=== PATIENT | male | born 1950 | race Caucasian/White ===

== ENCOUNTER 2016-12-11 09:12 | Emergency (ER) | payer OTHER ==
[~2016-12-11] VITALS: Ht 188 cm; Wt 88.5 kg
[~2016-12-11 09:12] MED LIST: CEPH500C3 PO; OXYC-360 PO; Z.0.NO CURRENT MEDS
[2016-12-11 09:15] VITALS: BP 156/77; PULSE 58; RESP 24; O2SAT 98
[2016-12-11] MEDS ORDERED: SODIUM CHLOR 0.9% 1000 ML INJ 1,000 ML IV ONE (09:32)
[2016-12-11 09:35] VITALS: BP 152/75; PULSE 50; RESP 16; O2SAT 100
--- NOTE | 2016-12-11 09:38 | PD ---
HPI Chief Complaint: GI Complaint Time Seen by Provider: 09:23 Travel History International Travel<30 days: No Contact w/Intl Traveler<30days: No Traveled to known affect area: No History of Present Illness HPI The patient is a 66-year-old male who presents emergency department for nausea, vomiting, and vertigo. The patient states he awakened this morning to look at the alarm clock and had a sudden onset of dizziness. The patient describes the dizziness as the room spinning and feeling off balance. The symptoms are worse when he turns his head left, right, has any sudden movements and slightly alleviated at rest. The patient also notes nausea and vomiting secondary to vertigo, but denies any chest pain, shortness of breath, or focal deficits. The patient does have a history of vertigo approximately 10 years ago that lasted for 2 days, the patient was placed on medications to help him sleep, the vertigo self resolved. He denies any weakness, numbness, tingling of the upper or lower extremities. The patient does have a history of prostate cancer and has a "button" in the scrotum that works as a sphincter, when he pushes the button, he is able to urinate. PFSH Past Medical History Narrative Medical Prostate cancer Diabetes: No Hepatitis: No Hiatal Hernia: No Thyroid Disease: No Past Surgical History Abdominal Surgery: Yes (hernia branden repair) Genitourinary Surgery: Yes (davinci prostatectomy) Social History Tobacco Use: No Allergies-Medications (Allergen,Severity, Reaction): Coded Allergies: No Known Allergies (Unverified , 12/11/16) Reported Meds & Prescriptions Reported Meds & Active Scripts Active Zofran Odt (Ondansetron Odt) 4 Mg Tab 4 Mg SL Q6HR PRN Valium (Diazepam) 5 Mg Tab 5 Mg PO TID PRN Meclizine (Meclizine HCl) 25 Mg Tab 25 Mg PO TID PRN Review of Systems Except as stated in HPI: all other systems reviewed are Neg HENT: Positive: Vertigo Cardiovascular: No: Chest Pain or Discomfort Gastrointestinal: Positive: Nausea, Vomiting, No: Abdominal Pain Musculoskeletal: No: Weakness Neurologic: Positive: Dizziness, No: Weakness, Focal Abnormalities, Headache Physical Exam Narrative GENERAL: Awake, alert, 66-year-old male who appears his stated age and is in no acute respiratory distress. SKIN: Slightly diaphoretic. HEAD: Atraumatic. Normocephalic. EYES: Pupils equal and round. Pupils are 3 mm bilateral and reactive. EOMs are intact. Patient is able to see fingers at a distance of 2 feet without difficulty. Patient is apprehensive when head is turned to the left or right. ENT: No nasal bleeding or discharge. Mucous membranes pink and moist. NECK: Trachea midline. No JVD. CARDIOVASCULAR: Regular, bradycardic with a heart rate of 56. RESPIRATORY: No accessory muscle use. Clear to auscultation. Breath sounds equal bilaterally. GASTROINTESTINAL: Abdomen soft, non-tender, nondistended. No rebound tenderness. MUSCULOSKELETAL: No obvious deformities. No clubbing. No cyanosis. No edema. NEUROLOGICAL: Awake and alert. No obvious cranial nerve deficits. Motor grossly within normal limits. Normal speech. PSYCHIATRIC: Appropriate mood and affect; insight and judgment normal. Data Data Last Documented VS Vital Signs Date Time Temp Pulse Resp B/P Pulse Ox O2 Delivery O2 Flow Rate FiO2 12/11/16 09:35 50 16 152/75 100 Room Air Orders Electrocardiogram (12/11/16 09:32) Basic Metabolic Panel (Bmp) (12/11/16 09:32) Complete Blood Count With Diff (12/11/16 09:32) Ct Brain W/O Iv Contrast(Rout) (12/11/16 09:32) Ecg Monitoring (12/11/16 09:32) Iv Access Insert/Monitor (12/11/16 09:32) Oximetry (12/11/16 09:32) Meclizine (Antivert) (12/11/16 09:45) Ondansetron Inj (Zofran Inj) (12/11/16 09:45) Sodium Chloride 0.9% Flush (Ns Flush) (12/11/16 09:45) Sodium Chlor 0.9% 1000 Ml Inj (Ns 1000 M (12/11/16 09:32) Orthostatic Vital Signs (12/11/16 09:32) Diazepam (Valium) (12/11/16 09:45) Ondansetron Inj (Zofran Inj) (12/11/16 11:00) Meclizine (Antivert) (12/11/16 11:00) Labs Laboratory Tests Test 12/11/16 12/11/16 09:50 11:20 White Blood Count 7.7 TH/MM3 Red Blood Count 4.99 MIL/MM3 Hemoglobin 15.5 GM/DL Hematocrit 45.6 % Mean Corpuscular Volume 91.3 FL Mean Corpuscular Hemoglobin 31.0 PG Mean Corpuscular Hemoglobin 34.0 % Concent Red Cell Distribution Width 13.7 % Platelet Count 142 TH/MM3 Mean Platelet Volume 9.9 FL Neutrophils (%) (Auto) 77.1 % Lymphocytes (%) (Auto) 14.2 % Monocytes (%) (Auto) 6.5 % Eosinophils (%) (Auto) 1.8 % Basophils (%) (Auto) 0.4 % Neutrophils # (Auto) 6.0 TH/MM3 Lymphocytes # (Auto) 1.1 TH/MM3 Monocytes # (Auto) 0.5 TH/MM3 Eosinophils # (Auto) 0.1 TH/MM3 Basophils # (Auto) 0.0 TH/MM3 CBC Comment DIFF FINAL Differential Comment Sodium Level 143 MEQ/L Potassium Level 3.5 MEQ/L Chloride Level 110 MEQ/L Carbon Dioxide Level 23.5 MEQ/L Anion Gap 10 MEQ/L Blood Urea Nitrogen 11 MG/DL Creatinine 0.93 MG/DL Estimat Glomerular Filtration 81 ML/MIN Rate Random Glucose 101 MG/DL Calcium Level 8.3 MG/DL MDM Medical Decision Making Medical Screen Exam Complete: Yes Emergency Medical Condition: Yes Medical Record Reviewed: Yes Interpretation(s) EKG reveals sinus bradycardia with a heart rate of 49. RSR prime in V1 with QRS of 114 ms, incomplete right bundle branch block. Last Impressions Head CT 12/11/16 0932 Signed Impressions: Service Date/Time: Sunday, December 11, 2016 10:02 - CONCLUSION: No acute disease. Feliz Nino MD FACR Laboratory Tests Test 12/11/16 12/11/16 09:50 11:20 White Blood Count 7.7 TH/MM3 Red Blood Count 4.99 MIL/MM3 Hemoglobin 15.5 GM/DL Hematocrit 45.6 % Mean Corpuscular Volume 91.3 FL Mean Corpuscular Hemoglobin 31.0 PG Mean Corpuscular Hemoglobin 34.0 % Concent Red Cell Distribution Width 13.7 % Platelet Count 142 TH/MM3 Mean Platelet Volume 9.9 FL Neutrophils (%) (Auto) 77.1 % Lymphocytes (%) (Auto) 14.2 % Monocytes (%) (Auto) 6.5 % Eosinophils (%) (Auto) 1.8 % Basophils (%) (Auto) 0.4 % Neutrophils # (Auto) 6.0 TH/MM3 Lymphocytes # (Auto) 1.1 TH/MM3 Monocytes # (Auto) 0.5 TH/MM3 Eosinophils # (Auto) 0.1 TH/MM3 Basophils # (Auto) 0.0 TH/MM3 CBC Comment DIFF FINAL Differential Comment Sodium Level 143 MEQ/L Potassium Level 3.5 MEQ/L Chloride Level 110 MEQ/L Carbon Dioxide Level 23.5 MEQ/L Anion Gap 10 MEQ/L Blood Urea Nitrogen 11 MG/DL Creatinine 0.93 MG/DL Estimat Glomerular Filtration 81 ML/MIN Rate Random Glucose 101 MG/DL Calcium Level 8.3 MG/DL Differential Diagnosis Differential diagnosis includes vertigo, labyrinthitis, Mnire's disease, cerebellar infarct, intracranial hemorrhage, arrhythmia, vasovagal episode. Narrative Course IV was established, labs are drawn and sent, and the patient was placed on cardiac telemetry monitoring and continuous pulse oximetry monitoring. The patient was administered meclizine, Valium, Zofran, and IV fluids. CT of the brain was obtained. EKG was ordered and interpreted. EKG reveals sinus bradycardia, heart rate did dip into the high 40s and would go up to the 60s, sinus rhythm, no evidence of underlying second-degree or third-degree block. CT of the brain is negative. The patient is reevaluated several times, the dizziness remained, however, had improved. The patient states he had a history of vertigo 10 years ago very similar, I had a discussion with the patient regarding 23 hour observation versus discharge home, patient states he wants to be discharged home. The patient will be discharged home on meclizine, Antivert , and Zofran. He is advised no driving while symptomatic and to have fall precautions at home. Patient agrees and understands. Diagnosis Primary Impression: Vertigo Patient Instructions: General Instructions Additional Instructions: Medications as directed. Follow-up with your primary physician and/or ENT if symptoms persist. If symptoms persist you may need physical therapy for vertigo. Med/Other Pt SpecificInfo: Prescription(s) given Scripts Ondansetron Odt (Zofran Odt)4 Mg Tab4 Mg SL Q6HR PRN (Nausea/Vomiting) #10 TAB Ref 0 Prov:Ovidio Schaffer MD 12/11/16 Diazepam (Valium)5 Mg Tab5 Mg PO TID PRN (VERTIGO) #15 TAB Ref 0 Prov:Ovidio Schaffer MD 12/11/16 Meclizine 25 Mg Tab25 Mg PO TID PRN (VERTIGO) #15 TAB Ref 0 Prov:Ovidio Schaffer MD 12/11/16 Disposition: 01 DISCHARGE HOME Condition: Stable Ovidio Schaffer MD Dec 11, 2016 09:38
[2016-12-11] MEDS ORDERED: SODIUM CHLORIDE 0.9% FLUSH 5 ML FLUSH IVF PRN (09:45)
[2016-12-11] MEDS ORDERED: DIAZEPAM 5 MG TAB PO ONE (09:45)
[2016-12-11] MEDS ORDERED: MECLIZINE HCL 25 MG TAB PO ONE ×2 (09:45→11:00)
[2016-12-11] MEDS ORDERED: ONDANSETRON HCL 4 MG/2 ML VIAL IVP ONE (09:45)
[2016-12-11 10:15] LABS: BASOPHIL % 0.4 % (0.0-2.0); EOSINOPHIL # 0.1 TH/MM3 (0-0.4); EOSINOPHIL % 1.8 % (0.0-4.0); HEMATOCRIT 45.6 % (39.0-51.0); HEMO FLAGS DIFF FINAL; LYMPH % 14.2 % (9.0-44.0); LYMPHOCYTE # 1.1 TH/MM3 (1.0-4.8); MEAN CELL VOLUME 91.3 FL (80.0-100.0); MONO % 6.5 % (0.0-8.0); NEUT % 77.1 % (16.0-70.0); PLATELET COUNT 142 TH/MM3 (150-450); RED BLOOD COUNT 4.99 MIL/MM3 (4.50-5.90); RED CELL DISTRIBUTION WIDTH 13.7 % (11.6-17.2); WHITE BLOOD COUNT 7.7 TH/MM3 (4.0-11.0)
--- NOTE | 2016-12-11 10:20 | RADRPT ---
EXAM DATE/TIME: 12/11/2016 10:02 [facility] COMPARISON: No previous studies available for comparison. INDICATIONS : Dizziness and vomiting. RADIATION DOSE: 56.35 CTDIvol (mGy) MEDICAL HISTORY : Carcinoma, prostate. SURGICAL HISTORY : None. ENCOUNTER: Initial ACUITY: 1 day PAIN SCALE: 0/10 LOCATION: cranial TECHNIQUE: Multiple contiguous axial images were obtained of the head. Using automated exposure control and adj ustment of the mA and/or kV according to patient size, radiation dose was kept as low as reasonably a chievable to obtain optimal diagnostic quality images. FINDINGS: CEREBRUM: The ventricles are normal for age. No evidence of midline shift, mass lesion, hemorrhage or acute in farction. No extra-axial fluid collections are seen. POSTERIOR FOSSA: The cerebellum and brainstem are intact. The 4th ventricle is midline. The cerebellopontine angle i s unremarkable. EXTRACRANIAL: The visualized portion of the orbits is intact. SKULL: The calvaria is intact. No evidence of skull fracture. CONCLUSION: No acute disease. Feliz Nino MD FACR on December 11, 2016 at 10:16 Board Certified Radiologist. This report was verified electronically.
[2016-12-11] MEDS ORDERED: ONDANSETRON HCL 4 MG/2 ML VIAL IV PUSH ONE (11:00)
[2016-12-11] MEDS ORDERED: DIAZ5 PO (11:45)
[2016-12-11] MEDS ORDERED: ZOFR4TAB3 SL (11:45)
[2016-12-11] MEDS ORDERED: MECL-62 PO (11:45)
[2016-12-11 11:49] LABS: BICARBONATE 23.5 MEQ/L (21.0-32.0); POTASSIUM 3.5 MEQ/L (3.5-5.1)
[2016-12-11 12:03] VITALS: BP_SYST 140; BP_SYST 152; BP_DIAS 70; BP_DIAS 74; RESP 14; RESP 20
--- NOTE | 2016-12-11 22:37 | EKG ---
Date Performed: 12/11/2016 Time Performed: 09:36:48 PTAGE: 66 years EKG: SINUS BRADYCARDIA INCOMPLETE RIGHT BUNDLE BRANCH BLOCK POSSIBLE LATERAL MYOCARDIAL INFARCTI ON BORDERLINE ECG PREVIOUS TRACING : 08/03/2011 10.47 DOCTOR: Yue Cruz Interpretating Date/Time 12/11/2016 22:36:49
== END 2016-12-11 12:33 | disposition home or self-care (01) ==
LOC: NEPA 09:12
DX: R42 Dizziness and giddiness (principal); R11.2 Nausea with vomiting, unspecified; Z85.46 Personal history of malignant neoplasm of prostate
CPT/HCPCS: 70450; 80048; 85025; 93005; 96361; 96374; 96376; 99284; J2405; J7030